=== PATIENT | male | born 1955 | race Caucasian/White ===

== ENCOUNTER 2017-11-30 10:37 | Emergency (ER) | payer BC ==
[2017-11-30 10:43] VITALS: BP 125/75
--- NOTE | 2017-11-30 11:08 | EDM.PDOC ---
ED HPI GENERAL MEDICAL PROBLEM - General Chief Complaint: Allergic Reaction Stated Complaint: BEE STING Time Seen by Provider: 11/30/17 10:56 Source of Information: Reports: Patient History Limitations: Reports: No Limitations - History of Present Illness INITIAL COMMENTS - FREE TEXT/NARRATIVE: This patient is a 61 year old male that presents to the ER. The patient reports that yesterday during the day he was stung to the right eyebrow. He reports he had swelling and localized redness to the area. The patient has been taking Benadryl over the counter, applying ice. His reports that the site looks much better compared to yesterday. She says less swelling and redness. The patient denies cedillo, dizziness, n, v, d, f, vision changes, eye involvement, cp, soa, chest tightness, wheezing, acid reflux, airway closure. Patient is alert and oriented. Airway intact. Conversing in full and complete sentences. Stable. Onset Date: 11/29/17 Location: Reports: Face Front/Back Body Image: 1 - bee sting location Severity: Mild Improves with: Reports: None Worsens with: Reports: None Associated Symptoms: Denies: Confusion, Chest Pain, Cough, cough w sputum, Diaphoresis, Fever/Chills, Headaches, Loss of Appetite, Malaise, Nausea/Vomiting , Rash, Seizure, Shortness of Breath, Syncope, Weakness Treatments DURAL MECHANIC: Reports: Cold Therapy, NSAIDS, Other (see below) Other Treatments DURAL MECHANIC: BENEDRYL Right Eye Pain Score (Numeric/FACES): 2 - Related Data Allergies Allergy/AdvReac Type Severity Reaction Status Date / Time bee venom protein (honey bee) Allergy Swelling Verified 11/30/17 10:49 Home Meds: Home Meds Ibuprofen [Advil] 200 mg PO DAILY PRN 08/03/14 [History] Celecoxib 100 mg PO BID 11/30/17 [History] diphenhydrAMINE [Benadryl] 50 mg PO DAILY PRN 11/30/17 [History] Past Medical History - Past Surgical History Musculoskeletal Surgical History: Reports: Knee Replacement Other Musculoskeletal Surgeries/Procedures:: LEFT KNEE Social & Family History - Caffeine Use Caffeine Use: Reports: Coffee - Recreational Drug Use Recreational Drug Use: No ED ROS ALLERGIC REACTION - Review of Systems Review Of Systems: See Below Constitutional: Reports: No Symptoms HEENT: Reports: Other (right orbital swelling). Denies: Vision Change Respiratory: Reports: No Symptoms. Denies: Shortness of Breath, Wheezing, Pleuritic Chest Pain, Cough, Sputum Cardiovascular: Reports: No Symptoms Endocrine: Reports: No Symptoms GI/Abdominal: Reports: No Symptoms : Reports: No Symptoms Musculoskeletal: Reports: No Symptoms Skin: Reports: No Symptoms Neurological: Reports: No Symptoms Psychiatric: Reports: No Symptoms Hematologic/Lymphatic: Reports: No Symptoms Immunologic: Reports: Other (bee sting reaction) ED EXAM GENERAL NO PERIP PULSE - Physical Exam Exam: See Below Exam Limited By: No Limitations General Appearance: Alert, WD/WN, No Apparent Distress Eye Exam: Right Eye: Other (Right orbital mild swelling, errythema. No eye closured. No stinger. no drainage. no eye involvement.), Left Eye: Normal Inspection, Bilateral Eye: EOMI, PERRL Ears: Normal External Exam, Normal Canal, Hearing Grossly Normal, Normal TMs Nose: Normal Inspection, Normal Mucosa, No Blood Throat/Mouth: Normal Inspection, Normal Lips, Normal Teeth, Normal Gums, Normal Oropharynx, Normal Voice, No Airway Compromise Head: Atraumatic, Normocephalic Neck: Normal Inspection, Supple, Non-Tender, Full Range of Motion Respiratory/Chest: No Respiratory Distress, Lungs Clear, Normal Breath Sounds, No Accessory Muscle Use Cardiovascular: Normal Peripheral Pulses, Regular Rate, Rhythm, No Edema, No Gallop, No JVD, No Murmur, No Rub Extremities: Normal Inspection Neurological: Alert, Oriented Psychiatric: Normal Affect, Normal Mood Skin Exam: Warm, Dry, Intact, No Rash, Erythema (Right orbital. Erythema. ). No : Increased Warmth, Wound/Incision Lymphatic: No Adenopathy Course - Vital Signs Last Recorded V/S: Last Vital Signs Temp 96.1 F 11/30/17 10:38 Pulse 67 11/30/17 10:38 Resp 18 11/30/17 10:38 BP 125/75 11/30/17 10:38 Pulse Ox 98 11/30/17 10:38 Departure - Departure Time of Disposition: 11:04 Disposition: Home, Self-Care 01 Condition: Fair Clinical Impression: Bee sting reaction Qualifiers: Encounter type: initial encounter Injury intent: accidental or unintentional Qualified Code(s): T63.441A - Toxic effect of venom of bees, accidental ( unintentional), initial encounter - Discharge Information Instructions: Bee, Wasp, or Hornet Sting, Adult Forms: ED Department Discharge Additional Instructions: Followup with your primary care provider Return to the ER for worsening of condition or any emergent concerns Take Benadryl every 6 hours for reaction IbuProfen 800mg every 8 hours as needed for pain and swelling (as long as no bleeding from bowels) May also use Tagament over the counter Ice to the area If no improvement after 5-7 days, followup with your primary care provider - Assessment/Plan Plan: PLEASE SEE RN NOTE FOR PFSH.
== END 2017-11-30 11:20 | disposition home or self-care (01) ==
LOC: CC.ED 10:37
DX: T63.441A Toxic effect of venom of bees, accidental (unintentional), initial encounter (principal); Z79.899 Other long term (current) drug therapy
CPT/HCPCS: 99282